=== PATIENT | female | born 1995 | race Caucasian/White ===

== ENCOUNTER 2018-11-11 21:56 | Emergency (ER) | payer OTHER, SELFPAY ==
[2018-11-11 21:57] VITALS: BP 152/88; PULSE 97; RESP 18; TEMP 36.2; O2SAT 99; BMI 40.3
--- NOTE | 2018-11-11 22:42 | ED.DCSUM_ITS ---
- ER Visit Summary Date of Service: 11/11/18 Chief Complaint: Dental pain History of Present Illness: The patient is a [address] Marquez. She reports that she has a hole in her right mandibular third molar that was found on x-ray by a dentist 4 months ago. States that she has been trying to get an appoint with an oral surgeon but has had a difficult time doing Mr. to your insurance problems. She has pain that is increased today. She describes a sharp pains 1010 worsening a 10 currently. Is worsened by eating and relieved by Tylenol. She does have hot and cold sensitivity. Physical Examination: Vitals: Stable. Afebrile. Mouth: No trismus. No edema of the floor of the mouth. Pain with percussion of right mandibular third molar. She has an [place] 2 fracture with dentin exposed to the anterior surface of this. There is no focal abscess. General: A&O x 3. NAD. Cardiovascular exam: Regular rate and rhythm, no murmur, rub or gallop. Respiratory exam: Clear to auscultation bilaterally. No wheezes or stridor. Abdominal exam: Soft, nontender, nondistended, normal bowel sounds. No peritoneal signs. Extremity: No clubbing, cyanosis, or edema. Emergency Department Course and Treatment: A temporary filling was placed in this to help with her pain. She is given penicillin, naproxen, and [place]. She is resting comfortably. Treatment Plan: Patient will be discharged instructions to follow-up the dentist as soon as possible. She will be placed on [place], naproxen, and penicillin at home. Return to the emergency department for any worsening symptoms. Disposition: To home in improved and stable condition. Impression: 1. Dental pain. This note was generated with [employer] dictation software. It may contain incorrect words, spelling, and punctuation that were not noted in review of the chart prior to signing ED Disposition - Plan for ED Patient: Disposition: Home or Assisted Living Instructions: ED Tooth Pain Prescriptions: Hydrocodone Bitart/Apap 5-325 [[place] 5MG-325MG] 1 tablet PO Q4H PRN PRN 2 Days #10 tablet PRN Reason: Pain Naproxen [Naprosyn] 500 mg PO BID #14 tablet Penicillin V Potassium 500 mg PO 4X/DAY #40 tablet Referrals: Dentist,Your [STAFF PHYSICIAN] - As soon as possible
[2018-11-11] MEDS: Penicillin Vk 250 MG Tablet 500 MG PO (23:18)
[2018-11-11] MEDS: Naproxen 250 MG Tablet 500 MG PO (23:18)
[2018-11-11] MEDS: HYDROcodone Bitartrate/Apap 5/325 Tablet PO ×2 (23:18)
[2018-11-11 23:22] VITALS: BP 148/65; PULSE 82; RESP 18; O2SAT 96
== END 2018-11-11 23:23 | disposition home or self-care (01) ==
LOC: ED 22:47
PROVIDERS: Emergency Provider Emergency Medicine; Family Provider Family Medicine; PCP Family Medicine
DX: K08.89 Other specified disorders of teeth and supporting structures (principal)
CPT/HCPCS: 64402; 99283

== ENCOUNTER → 2022-05-01 | Outpatient (CLI) | payer BC, SELFPAY ==
[2022-05-01 12:33] LABS: Absolute Lymphocyte Count 2.26 X10^3/uL (0.83-4.51); Absolute Neutrophil Count 8.2 X10^3/uL (2.0-7.7); Basophil# 0.04 X10^3/uL; Basophil% 0.4 % (0-1); Eosinophil# 0.09 X10^3/uL; Eosinophils% 0.8 % (0-5); Hematocrit 43.1 % (37-47); Hemoglobin 14.5 g/dL (12.0-15.0); Lymphocyte # 2.26 X10^3/ul (0.83-4.51); Lymphocyte % 19.9 % (19-41); Mean Corp Hgb Conc 33.6 g/dL (32-36); Mean Corpuscular Hgb 28.2 pg (27.0-32.0); Mean Corpuscular Volume 83.7 fL (81-99); Mean Platelet Vol. 11.6 fl (6.2-12.0); Monocyte# 0.68 X10^3/uL; NRBC Flagged by Analyzer 0 % (0-5); Neutrophil # 8.21 X10^3/uL (2.7-7.7); Neutrophil % 72.5 % (47-70); Platelet Count 306 K/mm3 (150-450); RBC Distribution Width CV 13.1 % (11.6-14.6); RBC Distribution Width SD 39.7 fl (35.1-43.9); Red Blood Count 5.15 M/mm3 (4.2-5.4); White Blood Count 11.3 K/mm3 (4.4-11.0)
[2022-05-01 13:22] LABS: HIV - WCH Non-Reactive (Nonreactive); Hepatitis B Surface Antigen Non-Reactive (Nonreactive); Hepatitis C Antibody Non-Reactive (Nonreactive); Rubella IgG Reactive (Nonreactive); Syphilis Antibodies Non-reactive
[2022-05-04 07:06] LABS: Chlamydia By Nucleic Acid AMP Negative (Negative); Gonococcus By Nucleic Acid AMP Negative (Negative)
[2022-05-04 10:20] LABS: V-Zoster IgG (Immunity) 2018 index (Immune >165)
[2022-05-06 13:21] LABS: HPV Reflexed? NOT INDICATED
== END | disposition home or self-care (01) ==
LOC: WOBLAB 09:51
PROVIDERS: PCP Family Medicine; Visit Provider Student in an Organized Health Care Education/Training Program
DX: Z34.81 Encounter for supervision of other normal pregnancy, first trimester (principal); Z12.4 Encounter for screening for malignant neoplasm of cervix; Z11.3 Encounter for screening for infections with a predominantly sexual mode of transmission
CPT/HCPCS: 36415; 85025; 86703; 86762; 86780; 86787; 86803; 87086; 87088; 87340; 87491; 87591; 88175; G0145

== ENCOUNTER → 2022-06-01 | Outpatient (CLI) | payer BC, SELFPAY ==
[2022-06-01 10:16] LABS: Glucose Challenge Gest 1H 50g 125 mg/dL (70-140)
== END | disposition home or self-care (01) ==
LOC: WOBLAB 09:48
PROVIDERS: PCP Family Medicine; Visit Provider Student in an Organized Health Care Education/Training Program
DX: Z34.81 Encounter for supervision of other normal pregnancy, first trimester (principal)
CPT/HCPCS: 36415; 82950

== ENCOUNTER → 2022-08-28 | Outpatient (CLI) | payer BC, SELFPAY ==
[2022-08-28 09:36] LABS: Absolute Lymphocyte Count 2.45 X10^3/uL (0.83-4.51); Absolute Neutrophil Count 10.6 X10^3/uL (2.0-7.7); Basophil# 0.06 X10^3/uL; Basophil% 0.4 % (0-1); Eosinophil# 0.11 X10^3/uL; Eosinophils% 0.8 % (0-5); Hematocrit 40.3 % (37-47); Lymphocyte # 2.45 X10^3/ul (0.83-4.51); Lymphocyte % 17.5 % (19-41); Mean Corp Hgb Conc 34.7 g/dL (32-36); Mean Corpuscular Volume 86.5 fL (81-99); Mean Platelet Vol. 11.2 fl (6.2-12.0); Monocyte# 0.69 X10^3/uL; Monocyte% 4.9 % (0-10); NRBC Flagged by Analyzer 0 % (0-5); Neutrophil # 10.57 X10^3/uL (2.7-7.7); Neutrophil % 75.6 % (47-70); Platelet Count 321 K/mm3 (150-450); RBC Distribution Width CV 13.9 % (11.6-14.6); RBC Distribution Width SD 43.3 fl (35.1-43.9); Red Blood Count 4.66 M/mm3 (4.2-5.4)
[2022-08-28 10:05] LABS: Glucose Challenge Gest 1H 50g 111 mg/dL (70-140)
== END | disposition home or self-care (01) ==
LOC: WOBLAB 09:17
PROVIDERS: PCP Family Medicine; Visit Provider Student in an Organized Health Care Education/Training Program
DX: Z34.82 Encounter for supervision of other normal pregnancy, second trimester (principal)
CPT/HCPCS: 36415; 82950; 85025

== ENCOUNTER → 2022-11-18 | Outpatient (CLI) | payer BC, SELFPAY ==
[2022-11-18 16:29] LABS: Absolute Lymphocyte Count 1.87 X10^3/uL (0.83-4.51); Absolute Neutrophil Count 8.3 X10^3/uL (2.0-7.7); Basophil# 0.03 X10^3/uL; Basophil% 0.3 % (0-1); Eosinophil# 0.02 X10^3/uL; Eosinophils% 0.2 % (0-5); Hematocrit 40.8 % (37-47); Hemoglobin 13.6 g/dL (12.0-15.0); Lymphocyte # 1.87 X10^3/ul (0.83-4.51); Lymphocyte % 17.2 % (19-41); Mean Corp Hgb Conc 33.3 g/dL (32-36); Mean Corpuscular Hgb 27.9 pg (27.0-32.0); Mean Corpuscular Volume 83.6 fL (81-99); Mean Platelet Vol. 12.6 fl (6.2-12.0); Monocyte# 0.61 X10^3/uL; Monocyte% 5.6 % (0-10); NRBC Flagged by Analyzer 0 % (0-5); Neutrophil # 8.32 X10^3/uL (2.7-7.7); Neutrophil % 76.4 % (47-70); Platelet Count 308 K/mm3 (150-450); RBC Distribution Width CV 12.8 % (11.6-14.6); RBC Distribution Width SD 38.4 fl (35.1-43.9); Red Blood Count 4.88 M/mm3 (4.2-5.4); White Blood Count 10.9 K/mm3 (4.4-11.0)
[2022-11-18 16:59] LABS: Syphilis Antibodies Non-reactive
== END | disposition home or self-care (01) ==
LOC: WOBLAB 15:19
PROVIDERS: PCP Family Medicine; Visit Provider Student in an Organized Health Care Education/Training Program
DX: Z36.85 Encounter for antenatal screening for Streptococcus B (principal); Z36.83 Encounter for fetal screening for congenital cardiac abnormalities
CPT/HCPCS: 36415; 85025; 86780; 87081

== ENCOUNTER → 2022-12-02 | Outpatient (CLI) | payer BC, SELFPAY | END | disposition home or self-care (01) | LOC: LABSPEC 15:34 | PROVIDERS: PCP Family Medicine; Visit Provider Student in an Organized Health Care Education/Training Program | DX: R30.0 Dysuria (principal) | CPT/HCPCS: 87086; 87088 ==

== ENCOUNTER 2022-12-07 05:20 | Inpatient (IN) | payer BC, SELFPAY ==
[2022-12-07] VITALS (72 sets, daily range): BP systolic 93–147; BP diastolic 52–103; PULSE 73–153; TEMP 36.1–37.5; O2SAT 88–100; BMI 45.4
[2022-12-07 05:40] LABS: ROM Internal Control Test YES-OK TO RESULT pt. (Internal QC)
[2022-12-07 05:42] LABS: ROM Patient Test POSITIVE (Negative)
[2022-12-07 06:01] LABS: Absolute Lymphocyte Count 2.63 X10^3/uL (0.83-4.51); Absolute Neutrophil Count 8.1 X10^3/uL (2.0-7.7); Basophil# 0.04 X10^3/uL; Basophil% 0.3 % (0-1); Eosinophil# 0.05 X10^3/uL; Eosinophils% 0.4 % (0-5); Hematocrit 42.9 % (37-47); Hemoglobin 14.4 g/dL (12.0-15.0); Lymphocyte # 2.63 X10^3/ul (0.83-4.51); Lymphocyte % 22.5 % (19-41); Mean Corp Hgb Conc 33.6 g/dL (32-36); Mean Corpuscular Hgb 28.2 pg (27.0-32.0); Mean Platelet Vol. 13.6 fl (6.2-12.0); Monocyte# 0.78 X10^3/uL; Monocyte% 6.7 % (0-10); NRBC Flagged by Analyzer 0 % (0-5); Neutrophil # 8.12 X10^3/uL (2.7-7.7); Neutrophil % 69.6 % (47-70); Platelet Count 234 K/mm3 (150-450); RBC Distribution Width SD 39.5 fl (35.1-43.9); Red Blood Count 5.11 M/mm3 (4.2-5.4); White Blood Count 11.7 K/mm3 (4.4-11.0)
[2022-12-07 06:21] LABS: AST(SGOT) 50 U/L (15-37); Alanine Aminotransfer ALT/SGPT 83 U/L (13-56); Creatinine, Serum 0.73 mg/dL (0.55-1.02); EST Glomerular Filtration Rate 101 mL/min (>60); Est Glom Filt Rate - Afr Amer 122 mL/min (>60); Estimated Creatinine Clearance 108.37 ml/min; Uric Acid 5.1 mg/dL (2.6-6.0)
[2022-12-07 06:35] LABS: Red Blood Cells-Urine 0 SEEN /hpf (0-5)
[2022-12-07 06:37] LABS: Color, Urine Yellow (Yellow); Glucose, Dipstick Normal (Normal); Ketone-Dipstick 5 mg/dl (Negative); Leukocyte Esterase-Dipstick 25 /ul (Negative); Nitrite-Dipstick Negative (Negative); Occult Blood-Urine Negative /ul (Negative); Protein-Dipstick 30 mg/dl (Negative); Urine Clarity Clear (Clear); Urine Urobilinogen 4 mg/dl (Normal); Urine pH 6.5 (5.0 - 8.0)
[2022-12-07 07:09] LABS: Protein:Creat Ratio 205 mg/g CRE (0-200); Urine Bilirubin Dipstick 1 mg/dL (Negative)
[2022-12-07 07:10] LABS: Bacteria 2+ /hpf (None Seen); Calcium Oxalate Crystals Ur 1+ /hpf (<or=2+); Mucous, Urine 3+ /hpf (<or=2+); Squamous Epithelial Cells - UA 0-5 SEEN /hpf (5-10); White Blood Cells 0-5 SEEN /hpf (0-5)
[2022-12-07] MEDS: LACTATED RINGERS 500 ML 999 ML IV ×2 (07:15→10:46)
[2022-12-07] MEDS: Lactated Ringers 1,000 ML 200 ML IV ×3 (07:46→16:46)
--- NOTE | 2022-12-07 07:49 | PCM.HP.BLA ---
History and Physical Date of Admission: 12/07/22 Chief complaint: Leakage of fluid History present illness: 26-year-old G1, P0 at 39 weeks and 2 days with ANNABEL 12/12/2022 arrives with leakage of clear fluid. Denies headache, visual changes, chest pain, shortness of breath, nausea vomit, right upper quadrant pain. Patient states good movement. is complicated by primary parous, BMI 45, anxiety/depression, and now preeclampsia without severe features Obstetric history: G1: Current Past medical history: Anxiety/depression, now preeclampsia without severe features Medications: Fluoxetine Allergies: Latex, Abilify Past surgical history: Colonoscopy, endoscopy, tonsils and adenoids Family history: Denies history DVT or PE Social history: Denies smoking, alcohol use, drug use Review of systems: Besides above pertinent positives a full review of systems was performed and found to be negative Physical exam: Vitals: Blood pressure 128/84 pulse 86 General: Normal-appearing no acute distress HEENT: Normocephalic/atraumatic no cervical of adenopathy Cardiac/respiratory: No use of accessory muscles, nonlabored breathing Abdomen: Soft, nontender, gravid Extremities: No peripheral edema normal peripheral pulses Psych: Normal affect and demeanor nonpressured speech Labs: White blood cell count 11.7 hemoglobin 14.4 hematocrit 42.9% platelets 234. Creatinine 0.73. AST 50 ALT 83. Urine protein creatinine ratio 205. ROM positive. Blood type a positive antibody negative Assessment and plan: 26-year-old G1, P0 at 39 weeks and 2 days with spontaneous rupture of membranes. Nursing informed physician elevated blood pressures, preeclampsia labs sent. Patient asymptomatic blood pressures nonsevere range. But AST and ALT slightly elevated, not double the upper limit of normal. But with these findings diagnostic of preeclampsia without severe features. We will continue to monitor and treat blood pressures as needed. Patient currently getting epidural. We will recheck cervix and if unchanged will start Pitocin. GBS negative.
[2022-12-07] MEDS: fentaNYL-bupivacaine (epidural) 100 ML BAG EPIDURAL ×3 (08:25→16:47)
[2022-12-07 09:13] LABS: Syphilis Antibodies Non-reactive
[2022-12-07] MEDS: 0.9% Saline Lock 10 ML Syringe IV ×3 (09:54→17:07)
[2022-12-07] MEDS: Ondansetron 4 MG/2 ML Vial IV ×2 (09:54→15:46)
[2022-12-07] MEDS: Oxytocin 15 Units/NS 250ml 15 UNITS/250 ML IV.SOLN 2 UNITS IV (14:43)
[2022-12-07] MEDS: Acetaminophen 500 MG Tablet PO (17:06)
--- NOTE | 2022-12-07 18:40 | EX.PCM.OBRPT ---
Maternal Data Information Final ANNABEL: 12/12/22 Vaginal Delivery Operative Information Date of Procedure: 12/07/22 Pre-Operative Diagnosis: Spontaneous rupture of membranes, savage intrauterine at term, preeclampsia without severe features Post-Operative Diagnosis: Spontaneous rupture of membranes, savage intrauterine at term, preeclampsia without severe features Surgery / Procedure Performed: Spontaneous Vaginal Delivery Type of Anesthesia: Epidural Estimated Blood Loss: 800cc Findings Description of Procedure: Prolonged second stage of labor. Discussion of vacuum-assisted vaginal delivery versus continued maternal efforts was had prior to delivery. Risk and benefits discussed. Patient desired continued pushing efforts without vacuum assist. Patient was making good progress and fetus was tolerating contractions and pushing. Spontaneous vaginal delivery of viable infant male. No nuchal cord. Baby to mom. Cord clamped and cut. Spontaneous delivery of placenta. Second-degree laceration repaired in the usual fashion. Hemostatic with interrupted stitches. Suburethral abrasion, hemostatic with 1 [id number]. Bruising on the perineum and labia noted during pushing, no evidence of hematoma or worsening of bruising during repair. Rectal exam completed noting external hemorrhoids and intact rectal mucosa. There was a slight delay in starting Pitocin after delivery of placenta due to emergent baby assessment. After Pitocin was started, fundus was palpated to be consistently firm, therefore uterotonics were not given. During repair, baby was taken to warmer for assessment due to decreased tone and respiratory effort. Assessed by RN team and anesthesiologist assistant certified, returned to maternal chest. See nursing/anesthesiologist assistant certified documentation for further detail. A Gender: Male (1 minute): 8 (5 minute): 9
[2022-12-07] MEDS: Oxytocin 15 Units/NS 250ml 15 UNITS/250 ML IV.SOLN 83 UNITS IV (18:43)
[2022-12-07] MEDS: Fluoxetine HCl 40 MG CAPSULE PO (21:08)
[2022-12-07 23:55] LABS: Absolute Neutrophil Count 21.7 X10^3/uL (2.0-7.7); Basophil# 0.07 X10^3/uL; Basophil% 0.3 % (0-1); Hematocrit 31.4 % (37-47); Hemoglobin 10.6 g/dL (12.0-15.0); Lymphocyte % 10.4 % (19-41); Mean Corp Hgb Conc 33.8 g/dL (32-36); Mean Corpuscular Hgb 28.6 pg (27.0-32.0); Mean Corpuscular Volume 84.9 fL (81-99); Mean Platelet Vol. 13.5 fl (6.2-12.0); Monocyte# 1.52 X10^3/uL; Monocyte% 5.6 % (0-10); NRBC Flagged by Analyzer 0.1 % (0-5); Neutrophil # 21.74 X10^3/uL (2.7-7.7); Neutrophil % 80.4 % (47-70); POSITIVE DIFFERENTIAL YES; Platelet Count 244 K/mm3 (150-450); RBC Distribution Width CV 13.2 % (11.6-14.6); RBC Distribution Width SD 40.1 fl (35.1-43.9)
[2022-12-07 23:58] LABS: Anion Gap 6 (5-15); BUN 8 mg/dL (7-18); Calcium,Total 7.9 mg/dL (8.5-10.1); Chloride 109 mmol/L (98-107); Creatinine, Serum 0.72 mg/dL (0.55-1.02); Differential Indicated SCAN CRITERIA MET; EST Glomerular Filtration Rate 102 mL/min (>60); Est Glom Filt Rate - Afr Amer 123 mL/min (>60); Estimated Creatinine Clearance 109.87 ml/min; Glucose 107 mg/dL (74-106); Potassium 3.8 mmol/L (3.5-5.1); Sodium Level 138 mmol/L (136-145)
[2022-12-08] VITALS (13 sets, daily range): BP systolic 103–119; BP diastolic 58–71; PULSE 93–171; RESP 16–18; TEMP 36.4–36.8; O2SAT 83–99
[2022-12-08 00:28] LABS: Differential Comment SCANNED
[2022-12-08] MEDS: Lactated Ringers 1,000 ML 999 ML IV (01:08)
[2022-12-08] MEDS: 0.9% Saline Lock 10 ML Syringe IV (01:08)
--- NOTE | 2022-12-08 06:11 | PN.OBGYN_ITS ---
Subjective Subjective Patient now asymptomatic. Denies dizziness, weakness, chest pain, shortness of breath, headache, visual changes, nausea vomiting, right upper quadrant pain. Previously overnight with some dizziness now resolved completely Objective Data Objective Data Vital Signs: Vital Signs Temp Pulse Resp BP Pulse Ox O2 Del Method 99.5 F H 108 H 16 113/58 L 97 Room Air 12/07/22 18:51 12/08/22 05:12 12/08/22 05:12 12/08/22 05:12 12/08/22 05:12 12/08/22 05:12 Oxygen Delivery Method Room Air Weight: 281 lb 8 oz Body Mass Index (BMI) 45.4 Intake & Output: Intake and Output for Last 24 Hours 12/06/22 12/07/22 12/08/22 23:59 23:59 23:59 Intake Total 3810.00 / 3810.00 1000 / 1000 Output Total 1500 / 1500 500 / 500 Balance 2310.00 / 2310.00 500 / 500 Lab / Micro Data Result Diagrams: 12/07/22 23:24 12/07/22 23:24 Labs: Laboratory Results - last 24 hr 12/07/22 05:30: Blood Type A POSITIVE, Antibody Screen NEGATIVE 12/07/22 05:30: Creatinine 0.73, Estim Creat Clear Calc 108.37, Est GFR (MDRD) Af Amer 122, Est GFR (MDRD) Non-Af 101, Uric Acid 5.1, AST 50 H, ALT 83 H 12/07/22 05:30: Syphilis Total Ab Non-reactive 12/07/22 06:25: U Random Total Protein 66.0 H, Urine Creatinine 322.00, Protein/Creatinin Ratio 205 H 12/07/22 06:25: Urine Color Yellow, Urine Clarity Clear, Urine pH 6.5, Ur Specific [place] 1.020, Urine Protein 30 H, Urine Glucose (UA) Normal, Urine Ketones 5 H, Urine Occult Blood Negative, Urine Nitrite Negative, Urine Bilirubin 1 H, Urine Urobilinogen 4 H, Ur Leukocyte Esterase 25 H, Urine RBC 0 SEEN, Urine WBC 0-5 SEEN, Ur Squamous Epith Cells 0-5 SEEN, Calcium Oxalate Crystal 1+, Urine Bacteria 2+, Urine Mucus 3+ 12/07/22 23:24: WBC 27.0 H, RBC 3.70 L, Hgb 10.6 L, Hct 31.4 L, MCV 84.9, MCH 28.6, MCHC 33.8, RDW Std Deviation 40.1, RDW Coeff of Itz 13.2, Plt Count 244, MPV 13.5 H, Immature Gran % (Auto) 3.300 H, Neut % (Auto) 80.4 H, Lymph % (Auto) 10.4 L, [place] % (Auto) 5.6, Eos % (Auto) 0.0, Baso % (Auto) 0.3, Absolute Neuts (auto) 21.7 H, Absolute Lymphs (auto) 2.80, Nucleated RBC % 0.1, Differential Comment SCANNED, Diff Path Review January12/07/22 23:24: Sodium 138, Potassium 3.8, Chloride 109 H, Carbon Dioxide 23.0, Anion Gap 6, BUN 8, Creatinine 0.72, Estim Creat Clear Calc 109.87, Est GFR (MDRD) Af Amer 123, Est GFR (MDRD) Non-Af 102, BUN/Creatinine Ratio 11.0, Glucose 107 H, Calcium 7.9 L Physical Exam Const alert, oriented x3, no apparent distress, average body habitus, healthy appear ing and well nourished HEENT normocephalic and moist oral mucous membranes Eyes PERRL Neck full ROM Resp normal respiratory effort, no retractions and no use of accessory muscles GI GI Narrative: Soft, nontender, uterus firm and below umbilicus Extremity normal to inspection and full ROM Neuro moves all extremities and no focal motor deficits Psych mental status grossly normal, affect normal, speech normal and activity/motor behavior normal Assessment & Plan (1) Vaginal delivery: PLAN: day 1. Breast-feeding. Pain well controlled. Overnight had some dizziness spell Labs with hemoglobin 10.6, overall vital signs stable. Patient also now asymptomatic and denies dizziness feels great ambulating with ease. Preeclampsia without severe features based on slightly elevated blood pressures and slightly elevated LFTs. Currently on no medication we will continue to monitor. HELLP labs pending this morning
[2022-12-08] MEDS: Acetaminophen 500 MG Tablet 1000 MG PO ×3 (07:57→20:34)
[2022-12-08 08:41] LABS: Hemoglobin 9.4 g/dL (12.0-15.0); Mean Corp Hgb Conc 33.6 g/dL (32-36); Mean Corpuscular Hgb 28.3 pg (27.0-32.0); Mean Corpuscular Volume 84.3 fL (81-99); Mean Platelet Vol. 13.3 fl (6.2-12.0); Platelet Count 181 K/mm3 (150-450); RBC Distribution Width CV 13.2 % (11.6-14.6); RBC Distribution Width SD 40.4 fl (35.1-43.9); Red Blood Count 3.32 M/mm3 (4.2-5.4); White Blood Count 17.2 K/mm3 (4.4-11.0)
[2022-12-08 09:10] LABS: ALB/GLOB Ratio 0.6 RATIO (0.9-2.4); AST(SGOT) 50 U/L (15-37); Alanine Aminotransfer ALT/SGPT 69 U/L (13-56); Albumin, Serum 1.9 g/dL (3.2-5.0); Alkaline Phosphatase 137 U/L (45-117); Anion Gap 6 (5-15); BUN 8 mg/dL (7-18); BUN/Creat Ratio 11.1 RATIO (10-20); Chloride 109 mmol/L (98-107); Creatinine, Serum 0.72 mg/dL (0.55-1.02); EST Glomerular Filtration Rate 103 mL/min (>60); Est Glom Filt Rate - Afr Amer 124 mL/min (>60); Estimated Creatinine Clearance 109.87 ml/min; Globulin 3.1 g/dL (2.2-4.2); Glucose 93 mg/dL (74-106); Sodium Level 138 mmol/L (136-145)
[2022-12-08] MEDS: Fluoxetine HCl 40 MG CAPSULE PO (09:38)
[2022-12-08] MEDS: Ibuprofen 600 MG Tablet PO ×2 (12:47→18:47)
[2022-12-08] MEDS: Senna/Docusate Sodium 1 Tablet PO (14:12)
[2022-12-08] MEDS: Benzocaine/Lanolin/Aloe Vera 1 SPRAY EACH TOPICAL (14:12)
[2022-12-09] VITALS (8 sets, daily range): BP systolic 101–128; BP diastolic 57–72; PULSE 88–104; RESP 16–19; TEMP 36.3–36.6; O2SAT 97–99
[2022-12-09] MEDS: Ibuprofen 600 MG Tablet PO ×4 (02:17→21:58)
[2022-12-09 05:30] LABS: Absolute Lymphocyte Count 2.22 X10^3/uL (0.83-4.51); Absolute Neutrophil Count 9.5 X10^3/uL (2.0-7.7); Basophil# 0.03 X10^3/uL; Basophil% 0.2 % (0-1); Eosinophil# 0.13 X10^3/uL; Hematocrit 24.3 % (37-47); Hemoglobin 7.9 g/dL (12.0-15.0); Lymphocyte # 2.22 X10^3/ul (0.83-4.51); Lymphocyte % 17.5 % (19-41); Mean Corp Hgb Conc 32.5 g/dL (32-36); Mean Corpuscular Hgb 28.3 pg (27.0-32.0); Mean Corpuscular Volume 87.1 fL (81-99); Mean Platelet Vol. 12.4 fl (6.2-12.0); Monocyte% 5.5 % (0-10); NRBC Flagged by Analyzer 0 % (0-5); Neutrophil # 9.48 X10^3/uL (2.7-7.7); Neutrophil % 74.9 % (47-70); Platelet Count 162 K/mm3 (150-450); RBC Distribution Width CV 13.4 % (11.6-14.6); RBC Distribution Width SD 42.4 fl (35.1-43.9); Red Blood Count 2.79 M/mm3 (4.2-5.4); White Blood Count 12.7 K/mm3 (4.4-11.0)
[2022-12-09] MEDS: Acetaminophen 500 MG Tablet 1000 MG PO ×3 (05:45→17:53)
[2022-12-09] MEDS: 0.9% Saline Lock 10 ML Syringe IV ×3 (05:51→14:38)
[2022-12-09 05:58] LABS: ALB/GLOB Ratio 0.6 RATIO (0.9-2.4); AST(SGOT) 23 U/L (15-37); Alanine Aminotransfer ALT/SGPT 45 U/L (13-56); Albumin, Serum 1.8 g/dL (3.2-5.0); Alkaline Phosphatase 108 U/L (45-117); Anion Gap 4 (5-15); BUN 8 mg/dL (7-18); BUN/Creat Ratio 12.7 RATIO (10-20); Calcium,Total 8.2 mg/dL (8.5-10.1); Chloride 110 mmol/L (98-107); Creatinine, Serum 0.63 mg/dL (0.55-1.02); EST Glomerular Filtration Rate 120 mL/min (>60); Est Glom Filt Rate - Afr Amer 145 mL/min (>60); Estimated Creatinine Clearance 125.57 ml/min; Glucose 121 mg/dL (74-106); Potassium 3.7 mmol/L (3.5-5.1); Protein, Total 4.8 g/dL (6.4-8.2); Sodium Level 139 mmol/L (136-145)
--- NOTE | 2022-12-09 07:31 | PN.OBGYN_ITS ---
Subjective Subjective Patient feeling well. Lochia minimal. Reports soreness. States that she is feeling much improved, however has some dizziness intermittently. No shortness of breath or chest pain. Objective Data Objective Data Vital Signs: Vital Signs Temp Pulse Resp BP Pulse Ox O2 Del Method 97.3 F L 88 17 106/72 99 Room Air 12/09/22 02:20 12/09/22 02:20 12/09/22 02:20 12/09/22 02:20 12/09/22 02:20 12/09/22 02:20 Oxygen Delivery Method Room Air Weight: 127.686 kg Body Mass Index (BMI) 45.4 Intake & Output: Intake and Output for Last 24 Hours 12/07/22 12/08/22 12/09/22 23:59 23:59 23:59 Intake Total 3810.00 / 3810.00 1000 / 1000 Output Total 1500 / 1500 1000 / 1000 Balance 2310.00 / 2310.00 0 / 0 Lab / Micro Data Attestation: I reviewed the patient's lab results. Result Diagrams: 12/09/22 05:20 12/09/22 05:20 Labs: Laboratory Results - last 24 hr 12/08/22 08:07: Sodium 138, Potassium 4.0, Chloride 109 H, Carbon Dioxide 23.0, Anion Gap 6, BUN 8, Creatinine 0.72, Estim Creat Clear Calc 109.87, Est GFR (MDRD) Af Amer 124, Est GFR (MDRD) Non-Af 103, BUN/Creatinine Ratio 11.1, Glucose 93, Calcium 8.0 L, Total Bilirubin 0.30, AST 50 H, ALT 69 H, Alkaline Phosphatase 137 H, Total Protein 5.0 L, Albumin 1.9 L, Globulin 3.1, Albumin/Globulin Ratio 0.6 L 12/08/22 08:07: WBC 17.2 H, RBC 3.32 L, Hgb 9.4 L, Hct 28.0 L, MCV 84.3, MCH 28.3, MCHC 33.6, RDW Std Deviation 40.4, RDW Coeff of Itz 13.2, Plt Count 181, MPV 13.3 H 12/09/22 05:20: WBC 12.7 H, RBC 2.79 L, Hgb 7.9 L, Hct 24.3 L, MCV 87.1, MCH 28.3, MCHC 32.5, RDW Std Deviation 42.4, RDW Coeff of Itz 13.4, Plt Count 162, MPV 12.4 H, Immature Gran % (Auto) 0.900, Neut % (Auto) 74.9 H, Lymph % (Auto) 17.5 L, [place] % (Auto) 5.5, Eos % (Auto) 1.0, Baso % (Auto) 0.2, Absolute Neuts (auto) 9.5 H, Absolute Lymphs (auto) 2.22, Nucleated RBC % 0 12/09/22 05:20: Sodium 139, Potassium 3.7, Chloride 110 H, Carbon Dioxide 25.0, Anion Gap 4 L, BUN 8, Creatinine 0.63, Estim Creat Clear Calc 125.57, Est GFR (MDRD) Af Amer 145, Est GFR (MDRD) Non-Af 120, BUN/Creatinine Ratio 12.7, Glucose 121 H, Calcium 8.2 L, Total Bilirubin 0.20, AST 23, ALT 45, Alkaline Phosphatase 108, Total Protein 4.8 L, Albumin 1.8 L, Globulin 3.0, Albumin/Globulin Ratio 0.6 L Physical Exam Const alert, oriented x3 and no apparent distress HEENT normocephalic Head and Scalp: atraumatic Neck full ROM Resp normal respiratory effort Cardio regular rate GI normal to inspection, nondistended, normoactive bowel sounds GI Narrative: Uterus 2 cm below umbilicus Back/Spine normal ROM Extremity normal to inspection Extremity Narrative: Minimal pedal edema Neuro no focal motor deficits and no sensory deficits noted Psych mental status grossly normal and affect normal Assessment & Plan (1) Vaginal delivery: PLAN: day 2 status post . Complicated by acute blood loss anemia secondary to delivery. Hemoglobin this morning 7.9, likely partially due to bleeding at time of delivery as well as equilibrating. Lochia has been minimal since delivery, no signs of continued blood loss. Reports occasional dizziness. Will give iron infusion this morning. Patient more comfortable with staying overnight with repeat CBC tomorrow. Will consider repeat dose of Venofer tomorrow.
[2022-12-09] MEDS: Lactated Ringers 500 ML IV.SOLN. IV (09:13)
[2022-12-09] MEDS: Senna/Docusate Sodium 1 Tablet PO (10:43)
[2022-12-09] MEDS: Fluoxetine HCl 40 MG CAPSULE PO (10:43)
[2022-12-09 13:30] LABS: Pathologist Review Reviewed
[2022-12-09] MEDS: Ondansetron 4 MG/2 ML Vial IV (14:38)
[2022-12-10] VITALS (7 sets, daily range): BP systolic 107–116; BP diastolic 56–77; PULSE 90–102; RESP 16; TEMP 36.2–36.7; O2SAT 80–98
[2022-12-10] MEDS: Acetaminophen 500 MG Tablet 1000 MG PO ×2 (00:03→13:31)
[2022-12-10] MEDS: Ibuprofen 600 MG Tablet PO ×2 (04:14→11:24)
--- NOTE | 2022-12-10 04:51 | PN.OBGYN_ITS ---
Subjective Subjective No overnight complaints. Denies headache, vision changes, chest pain, shortness of breath, weakness, dizziness, right upper quadrant pain. Objective Data Objective Data Vital Signs: Vital Signs Temp Pulse Resp BP Pulse Ox O2 Del Method 97.2 F L 99 16 115/63 98 Room Air 12/10/22 02:19 12/10/22 02:19 12/10/22 02:19 12/10/22 02:19 12/10/22 02:19 12/10/22 02:19 Oxygen Delivery Method Room Air Weight: 281 lb 8 oz Body Mass Index (BMI) 45.4 Intake & Output: Intake and Output for Last 24 Hours 12/08/22 12/09/22 12/10/22 23:59 23:59 23:59 Intake Total 1000 / 1000 110 / 110 Output Total 1000 / 1000 Balance 0 / 0 110 / 110 Lab / Micro Data Result Diagrams: 12/09/22 05:20 12/09/22 05:20 Labs: Laboratory Results - last 24 hr 12/07/22 23:24: Diff Path Review Reviewed 12/09/22 05:20: WBC 12.7 H, RBC 2.79 L, Hgb 7.9 L, Hct 24.3 L, MCV 87.1, MCH 28.3, MCHC 32.5, RDW Std Deviation 42.4, RDW Coeff of Itz 13.4, Plt Count 162, MPV 12.4 H, Immature Gran % (Auto) 0.900, Neut % (Auto) 74.9 H, Lymph % (Auto) 17.5 L, [place] % (Auto) 5.5, Eos % (Auto) 1.0, Baso % (Auto) 0.2, Absolute Neuts (auto) 9.5 H, Absolute Lymphs (auto) 2.22, Nucleated RBC % 0 12/09/22 05:20: Sodium 139, Potassium 3.7, Chloride 110 H, Carbon Dioxide 25.0, Anion Gap 4 L, BUN 8, Creatinine 0.63, Estim Creat Clear Calc 125.57, Est GFR (MDRD) Af Amer 145, Est GFR (MDRD) Non-Af 120, BUN/Creatinine Ratio 12.7, Glucose 121 H, Calcium 8.2 L, Total Bilirubin 0.20, AST 23, ALT 45, Alkaline Phosphatase 108, Total Protein 4.8 L, Albumin 1.8 L, Globulin 3.0, Albumin/Glob ulin Ratio 0.6 L Physical Exam Const alert, oriented x3, no apparent distress, average body habitus, healthy appearing and well nourished HEENT normocephalic and moist oral mucous membranes Eyes PERRL Neck full ROM Resp normal respiratory effort, no retractions and no use of accessory muscles GI GI Narrative: Soft, nontender, uterus firm and below umbilicus Extremity normal to inspection and full ROM Neuro moves all extremities and no focal motor deficits Psych mental status grossly normal, affect normal, speech normal and activity/motor behavior normal Assessment & Plan (1) Vaginal delivery: PLAN: day 3. Breast-feeding. Pain well controlled. Preeclampsia without severe features based on slightly elevated LFTs now LFTs resolved and within normal limits. Patient remains asymptomatic. No blood pressure medicati on. Acute blood loss anemia status post Venofer 200 mg IV on 12/09/2022. For repeat CBC today pending results will treat appropriately. Likely discharge home today pending results
[2022-12-10 05:47] LABS: Absolute Lymphocyte Count 2.35 X10^3/uL (0.83-4.51); Absolute Neutrophil Count 7.5 X10^3/uL (2.0-7.7); Basophil# 0.02 X10^3/uL; Basophil% 0.2 % (0-1); Eosinophil# 0.27 X10^3/uL; Eosinophils% 2.5 % (0-5); Hematocrit 24.2 % (37-47); Hemoglobin 7.9 g/dL (12.0-15.0); Lymphocyte # 2.35 X10^3/ul (0.83-4.51); Lymphocyte % 21.4 % (19-41); Mean Corp Hgb Conc 32.6 g/dL (32-36); Mean Corpuscular Hgb 28.3 pg (27.0-32.0); Mean Corpuscular Volume 86.7 fL (81-99); Mean Platelet Vol. 11.9 fl (6.2-12.0); Monocyte# 0.55 X10^3/uL; NRBC Flagged by Analyzer 0 % (0-5); Neutrophil # 7.51 X10^3/uL (2.7-7.7); Neutrophil % 68.4 % (47-70); Platelet Count 187 K/mm3 (150-450); RBC Distribution Width CV 13.6 % (11.6-14.6); RBC Distribution Width SD 42.1 fl (35.1-43.9); Red Blood Count 2.79 M/mm3 (4.2-5.4)
--- NOTE | 2022-12-10 06:05 | PCM.DC.BLA ---
Discharge Summary Date of Admission: 12/07/22 Date of Discharge: 12/10/22 Summary: Patient arrived on 12/07/2022 with spontaneous rupture of membranes. Also found to have slightly elevated LFTs diagnosed with preeclampsia without severe features. Subsequently delivered vaginally on 12/07/2022. Continue to monitor LFTs that resolved back to normal limits. Patient with hemorrhage at delivery, hemoglobin found to be 7.9 given Venofer x2. Patient discharged home on 12/10/2022 Meaningful Use Info Meaningful Use Diagnoses (Choose all that apply): None applicable Discharge Plan Admission Admit Date/Time: 12/07/22 05:20 Primary Reason for Your Visit: Spontaneous rupture membranes Attending Provider: Jessica Brownlee Primary Care Provider: Clemente Marquez Instructions Additional Instructions / Restrictions: Regular diet, weightbearing as tolerated, no intercourse for 4 to 6 weeks. Okay to shower. Call if fevers, chills, chest pain, shortness of breath, headache, visual changes. Follow-up within 5 to 7 days for blood pressure check Discharge Orders/Prescriptions Prescriptions: No Action fluoxetine 40 mg Capsule 40 mg PO DAILY diphenhydramine HCl [Benadryl] 25 mg Capsule 25 mg PO DAILY Referrals / Follow Up: Clemente Marquez MD [Primary Care Provider] - Disposition Disposition (needs filled in before D/C Order can be placed): Home, Self Care
[2022-12-10] MEDS: Sodium Ferric Gluconat 250 MG in 0.9% Normal Saline 250 ML 135 MG IV (07:16)
[2022-12-10] MEDS: 0.9% Saline Lock 10 ML Syringe IV ×2 (07:18→09:25)
[2022-12-10] MEDS: Senna/Docusate Sodium 1 Tablet PO (11:23)
[2022-12-10] MEDS: Fluoxetine HCl 40 MG CAPSULE PO (11:24)
--- NOTE | 2022-12-14 15:03 | NURSING ---
Follow up questions asked by Martha at [facility] visit. Family doing well. Pt and FOB both felt well supported during hospital stay. Pt reports feeling slightly anxious, but is on meds and stable with them. Lochia is minimal and pt. reports no other signs or symptoms.
== END 2022-12-10 14:25 | disposition home or self-care (01) | DRG 806 ==
LOC: WPOUT 05:20 → WP 05:20
PROVIDERS: Admitting Provider Student in an Organized Health Care Education/Training Program; PCP Family Medicine; Visit Provider Student in an Organized Health Care Education/Training Program
DX: O14.04 Mild to moderate pre-eclampsia, complicating childbirth (principal); Z37.0 Single live birth; D62 Acute posthemorrhagic anemia; F41.9 Anxiety disorder, unspecified; O90.81 Anemia of the puerperium; F32.A Depression, unspecified; O42.92 Full-term premature rupture of membranes, unspecified as to length of time between rupture and onset of labor; O99.344 Other mental disorders complicating childbirth; O22.43 Hemorrhoids in pregnancy, third trimester; O70.1 Second degree perineal laceration during delivery; O72.1 Other immediate postpartum hemorrhage; Z3A.39 39 weeks gestation of pregnancy
CPT/HCPCS: 36415; 59025; 59050; 80048; 80053; 81001; 82565; 82570; 84112; 84156; 84450; 84460; 84550; 85025; 85027; 86780; 86850; 86900; 86901; 99221; J1756; J7050; J7120; A4216; G0378; J2405; J2916

== ENCOUNTER → 2025-05-10 | Outpatient (CLI) | payer OTHER, SELFPAY ==
[2025-05-15 12:08] LABS: HPV APTIMA, High Risk Negative (Negative)
== END | disposition home or self-care (01) ==
LOC: LABSPEC 12:01
PROVIDERS: PCP Family Medicine; Visit Provider Nurse Practitioner Women's Health
DX: Z12.4 Encounter for screening for malignant neoplasm of cervix (principal)
CPT/HCPCS: 87624; 88175; G0145